=== PATIENT | male | born 1955 | race Caucasian/White ===

== ENCOUNTER 2019-08-01 00:02 | Inpatient (IN) ==
[2019-08-01] MEDS ORDERED: SODIUM CHLORIDE 0.9% 1,000 ML IV STA (00:35)
[2019-08-01] MEDS ORDERED: cefTRIAXone 1,000 MG in SODIUM CHLORIDE 0.9% 100 ML IV STA (00:35)
[2019-08-01 01:10] LABS: Bilirubin,Total 0.9 MG/DL (0.2-1.0); Calcium 8.8 MG/DL (8.5-10.1); Osmolality,Calculated 267.4 MOS/KG (273-304); Total Protein 6.4 G/DL (6.4-8.3)
[2019-08-01 01:11] LABS: Basophils % 0.2 % (0.0-0.8); Eosinophils % 0.2 % (0.00-10.9); Hematocrit 40.3 VOL% (42.0-52.0); Hemoglobin 13.7 GM/DL (14.0-18.0); Immature Granulocytes % 0.5 %; Immature Granulocytes Absolute 0.08 #; Lymphocytes # 1.5 10*3/uL (1.4-4.0); Neutrophils % 83.1 % (38.7-73.9); Platelet Count 515 T/CUMM (130-400); Red Blood Count 4.38 MC/CUMM (3.8-5.5); Red Cell Distribution Width 16.3 % (9.3-17.3); White Blood Count 16.6 T/CUMM (4-12)
[2019-08-01 01:17] LABS: INR 1.1; PT Patient Result 11.5 SECS (9.8-11.9); Partial Thromboplastin Time 23.5 SECS (23.9-33.8)
[2019-08-01 01:20] LABS: Troponin I < 0.015 NG/ML (0.00-0.045)
[2019-08-01 01:27] LABS: Bilirubin,Urine Negative (Negative); Blood, Urine Negative (Negative); Glucose,Urine (UA) Negative (Negative); Ketones,Urine 80 mg/dL (Negative); Mucus,Urine Many /LPF (Occasional); Nitrite,Urine Negative (Negative); Protein,Urine 30 MG/DL; RBC,Urine 2 /HPF (0-4); Urine Appearance CLEAR (Clear); Urine Color Amber (Yellow); Urine Specific Gravity 1.029 (1.001-1.035); WBC,Urine 1 /HPF (0-6)
[2019-08-01 02:22] LABS: ABG Base Excess -3.2 MMOL/L (-2.5-2.5); ABG HCO3 21.6 MMOL/L (20-26); ABG Oxygen Saturation 89.5 % (95-100); ABG PCO2 27.6 MM HG (35-48); ABG PH 7.455 (7.35-7.45); ABG PO2 55.9 MM HG (80-95); Allen Test Positive
[2019-08-01] MEDS ORDERED: DEXTROSE 50% 25 GM/50 ML VIAL IV PRN (02:43)
[2019-08-01] MEDS ORDERED: GLUCAGON 1 MG VIAL IM PRN (02:43)
[2019-08-01] MEDS ORDERED: NICOTINE 21 MG/24 HR PATCH TRANSDERM PRN (02:53)
[2019-08-01] MEDS ORDERED: ONDANSETRON 4 MG/2 ML VIAL IV PRN (02:53)
[2019-08-01] MEDS ORDERED: methylPREDNISolone SOD SUC 125 MG/2 ML VIAL IV STA (02:53)
[2019-08-01] MEDS ORDERED: hydrALAZINE 20 MG/1 ML VIAL IV PRN (02:53)
[2019-08-01] MEDS ORDERED: PNEUMOCOCCAL VACCINE (13 VALENT) 0.5 ML SYRINGE IM ONE (04:18)
[2019-08-01] MEDS: ACETAMINOPHEN 325 MG TABLET PO PRN ×4 (04:20→21:11)
[2019-08-01] MEDS: SODIUM CHLORIDE 0.9% 1,000 ML IV SCH ×3 (04:20→19:30)
[2019-08-01] MEDS ORDERED: RIZATRIPTAN 5 MG PO PRN (08:18)
[2019-08-01] MEDS: ALBUTEROL/IPRATROPIUM 3 ML NEB RESP TX SCH ×3 (08:49→19:45)
[2019-08-01] MEDS: sulfaSALAzine 500 MG TABLET PO SCH ×2 (09:00→21:11)
[2019-08-01] MEDS ORDERED: AZITHROMYCIN 250 MG TABLET PO ONE (09:00)
[2019-08-01] MEDS: FLUoxetine 20 MG CAPSULE PO SCH ×2 (09:01→21:21)
[2019-08-01] MEDS: busPIRone 10 MG TABLET PO SCH ×2 (09:01→21:21)
[2019-08-01] MEDS: PANTOPRAZOLE 40 MG TABLET PO SCH (09:01)
[2019-08-01] MEDS: PREGABALIN 75 MG CAPSULE PO SCH ×2 (09:01→21:11)
[2019-08-01] MEDS: LEVOTHYROXINE 88 MCG TABLET PO SCH (09:01)
[2019-08-01] MEDS: NAPROXEN 500 MG TABLET PO PRN (09:01)
[2019-08-01 10:45] LABS: Calcium 8.3 MG/DL (8.5-10.1); Osmolality,Calculated 277.1 MOS/KG (273-304)
[2019-08-01 12:42] LABS: Ferritin 97.6 ng/ml (26-388)
[2019-08-01] MEDS: ZALEPLON 5 MG CAPSULE PO SCH (21:11)
[2019-08-02] MEDS: ALBUTEROL/IPRATROPIUM 3 ML NEB RESP TX SCH ×4 (00:55→19:34)
[2019-08-02] MEDS: NAPROXEN 500 MG TABLET PO PRN ×2 (02:36→18:30)
[2019-08-02] MEDS: SODIUM CHLORIDE 0.9% 1,000 ML IV SCH ×3 (03:30→20:06)
[2019-08-02 05:00] LABS: Basophils % 0.1 % (0.0-0.8); Eosinophils % 0.1 % (0.00-10.9); Hematocrit 36.2 VOL% (42.0-52.0); Hemoglobin 12.5 GM/DL (14.0-18.0); Immature Granulocytes Absolute 0.22 #; Lymphocytes # 1.5 10*3/uL (1.4-4.0); Lymphocytes % 6.6 % (21.2-54.2); Mean Corpuscular HGB Conc 34.5 GM/DL (32-36); Mean Corpuscular Volume 90.7 FL (87-102); Mean Platelet Volume 10.3 FL (9.6-12.0); Monocytes % 4.5 % (1.7-12.7); Neutrophils % 87.7 % (38.7-73.9); Platelet Count 451 T/CUMM (130-400); Red Blood Count 3.99 MC/CUMM (3.8-5.5); Red Cell Distribution Width 16.6 % (9.3-17.3)
[2019-08-02 05:17] LABS: Calcium 8.5 MG/DL (8.5-10.1); Ferritin 115.2 ng/ml (26-388); Osmolality,Calculated 282.3 MOS/KG (273-304)
[2019-08-02 05:40] LABS: Lymphocytes 5 % (20-55); Platelet Estimate Adequate; Segmented Neutrophils 93 % (50-85); Total Cells Counted 100
[2019-08-02 05:41] LABS: Burr Cells Slight; Hypochromasia 1+; Ovalocytes Slight
[2019-08-02] MEDS: ACETAMINOPHEN 325 MG TABLET PO PRN (06:54)
[2019-08-02 07:06] LABS: Sedimentation Rate-Westergren 50 MM/HR (0-20)
[2019-08-02] MEDS ORDERED: methylPREDNISolone SOD SUC 40 MG/1 ML VIAL IV ONE (08:16)
[2019-08-02] MEDS ORDERED: DEXAMETHASONE 4 MG/1 ML VIAL IV ONE (08:18)
[2019-08-02 08:49] LABS: ABG Base Excess -3.3 MMOL/L (-2.5-2.5); ABG HCO3 21.4 MMOL/L (20-26); ABG Oxygen Saturation 87.9 % (95-100); ABG PCO2 33.4 MM HG (35-48); ABG PO2 55.9 MM HG (80-95); ABG TCO2 18.2 MMOL/L (23-27); Allen Test Positive
[2019-08-02] MEDS: sulfaSALAzine 500 MG TABLET PO SCH ×4 (09:31→20:30)
[2019-08-02] MEDS: busPIRone 10 MG TABLET PO SCH ×2 (09:32→20:27)
[2019-08-02] MEDS: LEVOTHYROXINE 88 MCG TABLET PO SCH (09:32)
[2019-08-02] MEDS: FLUoxetine 20 MG CAPSULE PO SCH ×4 (09:32→20:31)
[2019-08-02] MEDS: PANTOPRAZOLE 40 MG TABLET PO SCH (09:32)
[2019-08-02] MEDS: cefTRIAXone 1,000 MG in SYRINGE 1 EACH IV SCH (09:34)
[2019-08-02] MEDS: PREGABALIN 75 MG CAPSULE PO SCH ×2 (09:34→20:25)
[2019-08-02] MEDS: AZITHROMYCIN 250 MG TABLET PO SCH (09:34)
[2019-08-02] MEDS ORDERED: ENOXAPARIN 40 MG/0.4 ML SYRINGE SUBCUT SCH (12:30)
[2019-08-02] MEDS ORDERED: methylPREDNISolone SOD SUC 40 MG/1 ML VIAL IV SCH (15:00)
[2019-08-02] MEDS: ENOXAPARIN 80 MG/0.8 ML SYRINGE SUBCUT SCH (17:28)
[2019-08-02] MEDS: LORazepam 1 MG TABLET PO PRN ×2 (17:28→23:38)
[2019-08-02] MEDS: methylPREDNISolone SOD SUC 40 MG/1 ML VIAL IV SCH (20:25)
[2019-08-02] MEDS: ZALEPLON 5 MG CAPSULE PO SCH (20:26)
[2019-08-03] MEDS: ACETAMINOPHEN 325 MG TABLET PO PRN ×2 (00:09→07:09)
[2019-08-03] MEDS: SODIUM CHLORIDE 0.9% 1,000 ML IV SCH ×3 (01:39→15:19)
[2019-08-03] MEDS: ALBUTEROL/IPRATROPIUM 3 ML NEB RESP TX SCH ×4 (02:59→19:38)
[2019-08-03] MEDS: ENOXAPARIN 80 MG/0.8 ML SYRINGE SUBCUT SCH ×2 (03:24→15:17)
[2019-08-03 03:40] LABS: Basophils % 0.1 % (0.0-0.8); Hematocrit 36.8 VOL% (42.0-52.0); Hemoglobin 12.3 GM/DL (14.0-18.0); Immature Granulocytes % 0.8 %; Immature Granulocytes Absolute 0.12 #; Lymphocytes # 1.1 10*3/uL (1.4-4.0); Mean Corpuscular HGB Conc 33.4 GM/DL (32-36); Mean Corpuscular Volume 92.2 FL (87-102); Monocytes % 4.1 % (1.7-12.7); Platelet Count 526 T/CUMM (130-400); Red Blood Count 3.99 MC/CUMM (3.8-5.5); Red Cell Distribution Width 17.7 % (9.3-17.3); White Blood Count 15.8 T/CUMM (4-12)
[2019-08-03 05:21] LABS: Sedimentation Rate-Westergren 74 MM/HR (0-20)
[2019-08-03] MEDS: sulfaSALAzine 500 MG TABLET PO SCH ×2 (08:47→21:36)
[2019-08-03] MEDS: FLUoxetine 20 MG CAPSULE PO SCH ×2 (08:51→21:36)
[2019-08-03] MEDS: PREGABALIN 75 MG CAPSULE PO SCH ×2 (08:52→21:38)
[2019-08-03] MEDS: busPIRone 10 MG TABLET PO SCH ×2 (08:52→21:38)
[2019-08-03] MEDS: LEVOTHYROXINE 88 MCG TABLET PO SCH (08:52)
[2019-08-03] MEDS: AZITHROMYCIN 250 MG TABLET PO SCH (08:53)
[2019-08-03] MEDS: PANTOPRAZOLE 40 MG TABLET PO SCH (08:53)
[2019-08-03] MEDS: methylPREDNISolone SOD SUC 40 MG/1 ML VIAL IV SCH ×2 (08:53→21:36)
[2019-08-03] MEDS: cefTRIAXone 1,000 MG in SYRINGE 1 EACH IV SCH (08:56)
[2019-08-03] MEDS: DEXMEDETOMIDINE 200 MCG in SODIUM CHLORIDE 0.9% 48 ML IV PRN ×3 (09:10→20:17)
[2019-08-03 11:01] LABS: Calcium 8.4 MG/DL (8.5-10.1); Ferritin 96.8 ng/ml (26-388); Osmolality,Calculated 286.3 MOS/KG (273-304)
[2019-08-03] MEDS: NAPROXEN 500 MG TABLET PO PRN (16:14)
[2019-08-03] MEDS: LORazepam 1 MG TABLET PO PRN (20:18)
[2019-08-03] MEDS: RIZATRIPTAN ODT 5 MG TABLET PO PRN (20:18)
[2019-08-03] MEDS: ZALEPLON 5 MG CAPSULE PO SCH (21:38)
[2019-08-03] MEDS: guaiFENesin/DM ER 600-30 MG TABLET PO PRN (21:38)
[2019-08-04] MEDS: ALBUTEROL/IPRATROPIUM 3 ML NEB RESP TX SCH ×4 (01:40→19:35)
[2019-08-04] MEDS: RIZATRIPTAN ODT 5 MG TABLET PO PRN ×4 (02:20→16:39)
[2019-08-04] MEDS: ENOXAPARIN 80 MG/0.8 ML SYRINGE SUBCUT SCH ×2 (03:45→15:38)
[2019-08-04] MEDS: SODIUM CHLORIDE 0.9% 1,000 ML IV SCH ×2 (03:48→15:36)
[2019-08-04] MEDS: LORazepam 1 MG TABLET PO PRN (04:34)
[2019-08-04 05:07] LABS: Basophils % 0.2 % (0.0-0.8); Hematocrit 35.8 VOL% (42.0-52.0); Hemoglobin 12.4 GM/DL (14.0-18.0); Immature Granulocytes % 0.5 %; Immature Granulocytes Absolute 0.06 #; Lymphocytes # 0.6 10*3/uL (1.4-4.0); Lymphocytes % 4.8 % (21.2-54.2); Mean Corpuscular HGB Conc 34.6 GM/DL (32-36); Mean Corpuscular Volume 89.5 FL (87-102); Mean Platelet Volume 10.4 FL (9.6-12.0); Monocytes % 3.2 % (1.7-12.7); NRBC # 0.02 10*3/uL; Neutrophils % 91.3 % (38.7-73.9); Platelet Count 599 T/CUMM (130-400); Red Cell Distribution Width 16.9 % (9.3-17.3); White Blood Count 13.2 T/CUMM (4-12)
[2019-08-04] MEDS: DEXMEDETOMIDINE 200 MCG in SODIUM CHLORIDE 0.9% 48 ML IV PRN ×2 (05:08→15:37)
[2019-08-04 05:31] LABS: Albumin 1.7 G/DL (3.4-5.0); Bilirubin,Total 0.4 MG/DL (0.2-1.0); Calcium 8.9 MG/DL (8.5-10.1); Osmolality,Calculated 287.1 MOS/KG (273-304); Total Protein 5.5 G/DL (6.4-8.3)
[2019-08-04 05:47] LABS: Lymphocytes 5 % (20-55); Segmented Neutrophils 91 % (50-85); Total Cells Counted 100
[2019-08-04 05:49] LABS: Anisocytosis 1+; Burr Cells 1+; Hypochromasia Slight; Macrocytosis 1+; Platelet Estimate Increased; Target Cells Few
[2019-08-04] MEDS: sulfaSALAzine 500 MG TABLET PO SCH ×2 (08:13→20:24)
[2019-08-04] MEDS: FLUoxetine 20 MG CAPSULE PO SCH ×2 (08:13→20:21)
[2019-08-04] MEDS: PANTOPRAZOLE 40 MG TABLET PO SCH (08:32)
[2019-08-04] MEDS: LEVOTHYROXINE 88 MCG TABLET PO SCH (08:32)
[2019-08-04] MEDS: busPIRone 10 MG TABLET PO SCH ×2 (08:32→20:20)
[2019-08-04] MEDS: methylPREDNISolone SOD SUC 40 MG/1 ML VIAL IV SCH (08:33)
[2019-08-04] MEDS: cefTRIAXone 1,000 MG in SYRINGE 1 EACH IV SCH (08:33)
[2019-08-04] MEDS: AZITHROMYCIN 250 MG TABLET PO SCH (08:33)
[2019-08-04] MEDS: PREGABALIN 75 MG CAPSULE PO SCH ×2 (08:33→20:20)
[2019-08-04] MEDS ORDERED: ETOMIDATE 20 MG/10 ML VIAL IV ONE (09:16)
[2019-08-04] MEDS ORDERED: fentaNYL 100 MCG/2 ML VIAL IV STA (09:18)
[2019-08-04] MEDS ORDERED: propofoL 200 MG/20 ML VIAL IV ONE (09:18)
[2019-08-04] MEDS ORDERED: SUCCINYLCHOLINE 200 MG/10 ML VIAL ONE (09:21)
[2019-08-04] MEDS: methylPREDNISolone SOD SUC 125 MG/2 ML VIAL IV SCH ×3 (09:31→20:35)
[2019-08-04] MEDS: ACETAMINOPHEN 325 MG TABLET PO PRN (17:53)
[2019-08-04] MEDS: ZALEPLON 5 MG CAPSULE PO SCH (20:24)
[2019-08-05] MEDS: DEXMEDETOMIDINE 200 MCG in SODIUM CHLORIDE 0.9% 48 ML IV PRN ×3 (01:12→17:56)
[2019-08-05] MEDS: RIZATRIPTAN ODT 5 MG TABLET PO PRN ×6 (02:18→18:12)
[2019-08-05] MEDS: SODIUM CHLORIDE 0.9% 1,000 ML IV SCH (02:18)
[2019-08-05] MEDS: methylPREDNISolone SOD SUC 125 MG/2 ML VIAL IV SCH ×4 (03:23→21:10)
[2019-08-05] MEDS: ENOXAPARIN 80 MG/0.8 ML SYRINGE SUBCUT SCH ×2 (03:26→15:05)
[2019-08-05 05:14] LABS: Basophils % 0.1 % (0.0-0.8); Hematocrit 38.3 VOL% (42.0-52.0); Hemoglobin 12.8 GM/DL (14.0-18.0); Immature Granulocytes % 0.8 %; Immature Granulocytes Absolute 0.08 #; Lymphocytes # 0.9 10*3/uL (1.4-4.0); Lymphocytes % 8.2 % (21.2-54.2); Mean Corpuscular HGB Conc 33.4 GM/DL (32-36); Mean Corpuscular Volume 91.6 FL (87-102); Mean Platelet Volume 10.4 FL (9.6-12.0); Monocytes % 2.6 % (1.7-12.7); NRBC # 0.02 10*3/uL; Neutrophils % 88.3 % (38.7-73.9); Platelet Count 635 T/CUMM (130-400); Red Blood Count 4.18 MC/CUMM (3.8-5.5); Red Cell Distribution Width 16.8 % (9.3-17.3); White Blood Count 10.6 T/CUMM (4-12)
[2019-08-05 05:32] LABS: Albumin 1.6 G/DL (3.4-5.0); Bilirubin,Total 0.5 MG/DL (0.2-1.0); Calcium 8.4 MG/DL (8.5-10.1); Osmolality,Calculated 284.4 MOS/KG (273-304); Total Protein 5.2 G/DL (6.4-8.3)
[2019-08-05] MEDS: ALBUTEROL/IPRATROPIUM 3 ML NEB RESP TX SCH ×4 (07:28→19:50)
[2019-08-05] MEDS: FLUoxetine 20 MG CAPSULE PO SCH ×2 (08:34→21:06)
[2019-08-05] MEDS: AZITHROMYCIN 250 MG TABLET PO SCH (08:34)
[2019-08-05] MEDS: busPIRone 10 MG TABLET PO SCH ×2 (08:34→21:08)
[2019-08-05] MEDS: PANTOPRAZOLE 40 MG TABLET PO SCH (08:34)
[2019-08-05] MEDS: PREGABALIN 75 MG CAPSULE PO SCH ×2 (08:34→21:08)
[2019-08-05] MEDS: ERGOCALCIFEROL 50,000 UNIT CAPSULE PO SCH (08:35)
[2019-08-05] MEDS: LORazepam 1 MG TABLET PO PRN ×3 (08:35→21:09)
[2019-08-05] MEDS: LEVOTHYROXINE 88 MCG TABLET PO SCH (08:35)
[2019-08-05] MEDS: guaiFENesin/DM ER 600-30 MG TABLET PO PRN (08:35)
[2019-08-05] MEDS: cefTRIAXone 1,000 MG in SYRINGE 1 EACH IV SCH (08:35)
[2019-08-05] MEDS: sulfaSALAzine 500 MG TABLET PO SCH ×2 (08:36→21:15)
[2019-08-05] MEDS ORDERED: FUROSEMIDE 40 MG/4 ML VIAL IV ONE (08:44)
[2019-08-05] MEDS: NAPROXEN 500 MG TABLET PO PRN ×2 (10:09→22:38)
[2019-08-05] MEDS: ZALEPLON 5 MG CAPSULE PO SCH (21:07)
[2019-08-06] MEDS: DEXMEDETOMIDINE 200 MCG in SODIUM CHLORIDE 0.9% 48 ML IV PRN (00:55)
[2019-08-06] MEDS: ALBUTEROL/IPRATROPIUM 3 ML NEB RESP TX SCH ×4 (01:58→18:56)
[2019-08-06] MEDS: ENOXAPARIN 80 MG/0.8 ML SYRINGE SUBCUT SCH (04:01)
[2019-08-06] MEDS: methylPREDNISolone SOD SUC 125 MG/2 ML VIAL IV SCH ×5 (04:02→20:31)
[2019-08-06] MEDS: LORazepam 1 MG TABLET PO PRN ×3 (04:06→20:50)
[2019-08-06] MEDS: NAPROXEN 500 MG TABLET PO PRN (04:10)
[2019-08-06 05:24] LABS: Basophils % 0.1 % (0.0-0.8); Hematocrit 40.8 VOL% (42.0-52.0); Hemoglobin 13.9 GM/DL (14.0-18.0); Immature Granulocytes % 0.8 %; Immature Granulocytes Absolute 0.11 #; Lymphocytes # 1.1 10*3/uL (1.4-4.0); Mean Corpuscular HGB Conc 34.1 GM/DL (32-36); Mean Corpuscular Volume 90.1 FL (87-102); Mean Platelet Volume 10.8 FL (9.6-12.0); Monocytes % 2.7 % (1.7-12.7); Neutrophils % 88.4 % (38.7-73.9); Platelet Count 691 T/CUMM (130-400); Red Blood Count 4.53 MC/CUMM (3.8-5.5); Red Cell Distribution Width 16.5 % (9.3-17.3); White Blood Count 14.3 T/CUMM (4-12)
[2019-08-06 05:49] LABS: Bilirubin,Total 0.4 MG/DL (0.2-1.0); Calcium 9.2 MG/DL (8.5-10.1); Osmolality,Calculated 284.4 MOS/KG (273-304); Total Protein 5.9 G/DL (6.4-8.3)
[2019-08-06] MEDS: NICOTINE 21 MG/24 HR PATCH TRANSDERM SCH (08:10)
[2019-08-06] MEDS: FUROSEMIDE 40 MG/4 ML VIAL IV SCH ×2 (08:11→15:43)
[2019-08-06] MEDS: cefTRIAXone 1,000 MG in SYRINGE 1 EACH IV SCH (08:11)
[2019-08-06] MEDS: busPIRone 10 MG TABLET PO SCH ×2 (08:11→20:15)
[2019-08-06] MEDS: LEVOTHYROXINE 88 MCG TABLET PO SCH (08:12)
[2019-08-06] MEDS: PANTOPRAZOLE 40 MG TABLET PO SCH (08:12)
[2019-08-06] MEDS: sulfaSALAzine 500 MG TABLET PO SCH ×2 (08:12→20:15)
[2019-08-06] MEDS: RIZATRIPTAN ODT 5 MG TABLET PO PRN ×2 (08:12→15:43)
[2019-08-06] MEDS: PREGABALIN 75 MG CAPSULE PO SCH ×2 (08:12→20:15)
[2019-08-06] MEDS: FLUoxetine 20 MG CAPSULE PO SCH ×2 (08:13→20:15)
[2019-08-06] MEDS: fentaNYL 25 MCG/HR PATCH TRANSDERM SCH (10:34)
[2019-08-06] MEDS: FLUTICASONE 50 MCG NASAL SPRAY 16 GM BOTTLE BOTH NARES SCH ×2 (10:34→20:17)
[2019-08-06 11:02] LABS: Bilirubin,Urine Negative (Negative); Blood, Urine Negative (Negative); Glucose,Urine (UA) Negative (Negative); Ketones,Urine Negative (Negative); Mucus,Urine Occasional /LPF (Occasional); Nitrite,Urine Negative (Negative); Protein,Urine Negative; RBC,Urine 1 /HPF (0-4); Urine Appearance CLEAR (Clear); Urine Color Colorless (Yellow); Urine Specific Gravity 1.006 (1.001-1.035); Urine Urobilinogen < 2.0 EU/DL (0.2-1.0)
[2019-08-06] MEDS: diphenhydrAMINE CAP 25 MG CAPSULE PO PRN (20:15)
[2019-08-06] MEDS: ZALEPLON 5 MG CAPSULE PO SCH (20:15)
[2019-08-07] MEDS: ALBUTEROL/IPRATROPIUM 3 ML NEB RESP TX SCH ×4 (00:39→19:45)
[2019-08-07] MEDS: RIZATRIPTAN ODT 5 MG TABLET PO PRN ×4 (00:47→09:28)
[2019-08-07] MEDS: methylPREDNISolone SOD SUC 125 MG/2 ML VIAL IV SCH ×3 (03:07→20:52)
[2019-08-07] MEDS: LORazepam 1 MG TABLET PO PRN ×3 (03:08→15:21)
[2019-08-07 05:05] LABS: Basophils % 0.1 % (0.0-0.8); Hematocrit 37.6 VOL% (42.0-52.0); Hemoglobin 12.6 GM/DL (14.0-18.0); Immature Granulocytes % 1.1 %; Immature Granulocytes Absolute 0.13 #; Lymphocytes # 0.9 10*3/uL (1.4-4.0); Lymphocytes % 7.5 % (21.2-54.2); Mean Corpuscular HGB Conc 33.5 GM/DL (32-36); Mean Corpuscular Volume 90.6 FL (87-102); Mean Platelet Volume 10.3 FL (9.6-12.0); Monocytes % 4.2 % (1.7-12.7); Neutrophils % 87.1 % (38.7-73.9); Platelet Count 690 T/CUMM (130-400); Red Blood Count 4.15 MC/CUMM (3.8-5.5); Red Cell Distribution Width 15.9 % (9.3-17.3); White Blood Count 11.6 T/CUMM (4-12)
[2019-08-07 05:14] LABS: Calcium 8.4 MG/DL (8.5-10.1); Osmolality,Calculated 283.5 MOS/KG (273-304)
[2019-08-07] MEDS: PREGABALIN 75 MG CAPSULE PO SCH ×2 (09:14→20:34)
[2019-08-07] MEDS: busPIRone 10 MG TABLET PO SCH ×2 (09:14→20:35)
[2019-08-07] MEDS: sulfaSALAzine 500 MG TABLET PO SCH ×2 (09:15→20:35)
[2019-08-07] MEDS: PANTOPRAZOLE 40 MG TABLET PO SCH (09:15)
[2019-08-07] MEDS: FLUoxetine 20 MG CAPSULE PO SCH ×2 (09:15→20:38)
[2019-08-07] MEDS: FUROSEMIDE 40 MG/4 ML VIAL IV SCH (09:16)
[2019-08-07] MEDS: ENOXAPARIN 40 MG/0.4 ML SYRINGE SUBCUT SCH (09:19)
[2019-08-07] MEDS: NICOTINE 21 MG/24 HR PATCH TRANSDERM SCH (09:19)
[2019-08-07] MEDS: cefTRIAXone 1,000 MG in SYRINGE 1 EACH IV SCH (09:24)
[2019-08-07] MEDS: FLUTICASONE 50 MCG NASAL SPRAY 16 GM BOTTLE BOTH NARES SCH ×2 (09:26→20:34)
[2019-08-07] MEDS: LEVOTHYROXINE 88 MCG TABLET PO SCH (09:34)
[2019-08-07] MEDS: ACETAMINOPHEN 325 MG TABLET PO PRN (14:06)
[2019-08-07] MEDS: ZALEPLON 5 MG CAPSULE PO SCH (20:35)
[2019-08-07] MEDS: NAPROXEN 500 MG TABLET PO PRN (23:23)
[2019-08-08] MEDS: ALBUTEROL/IPRATROPIUM 3 ML NEB RESP TX SCH ×4 (02:35→20:02)
[2019-08-08] MEDS: methylPREDNISolone SOD SUC 40 MG/1 ML VIAL IV SCH ×2 (03:02→12:01)
[2019-08-08] MEDS: cefTRIAXone 2,000 MG in SYRINGE 1 EACH IV SCH (09:17)
[2019-08-08] MEDS: FUROSEMIDE 40 MG/4 ML VIAL IV SCH (09:18)
[2019-08-08] MEDS: ENOXAPARIN 40 MG/0.4 ML SYRINGE SUBCUT SCH (09:28)
[2019-08-08] MEDS: FLUTICASONE 50 MCG NASAL SPRAY 16 GM BOTTLE BOTH NARES SCH ×2 (09:30→20:31)
[2019-08-08] MEDS: PREGABALIN 75 MG CAPSULE PO SCH ×2 (09:31→20:16)
[2019-08-08] MEDS: LEVOTHYROXINE 88 MCG TABLET PO SCH (09:31)
[2019-08-08] MEDS: FLUoxetine 20 MG CAPSULE PO SCH ×2 (09:32→20:15)
[2019-08-08] MEDS: PANTOPRAZOLE 40 MG TABLET PO SCH (09:33)
[2019-08-08] MEDS: busPIRone 10 MG TABLET PO SCH ×2 (09:34→20:15)
[2019-08-08] MEDS: sulfaSALAzine 500 MG TABLET PO SCH ×2 (09:34→20:15)
[2019-08-08] MEDS: NICOTINE 21 MG/24 HR PATCH TRANSDERM SCH (09:35)
[2019-08-08] MEDS ORDERED: MELOXICAM 7.5 MG TABLET PO SCH (12:30)
[2019-08-08] MEDS: MELOXICAM 7.5 MG TABLET PO SCH (14:02)
[2019-08-08] MEDS: ACETAMINOPHEN 325 MG TABLET PO PRN (16:14)
[2019-08-08] MEDS: ZALEPLON 5 MG CAPSULE PO SCH (20:15)
[2019-08-08] MEDS: RIZATRIPTAN ODT 5 MG TABLET PO PRN (20:33)
[2019-08-08] MEDS: LORazepam 1 MG TABLET PO PRN (21:59)
[2019-08-09] MEDS: methylPREDNISolone SOD SUC 40 MG/1 ML VIAL IV SCH ×2 (00:19→11:14)
[2019-08-09] MEDS: ALBUTEROL/IPRATROPIUM 3 ML NEB RESP TX SCH ×3 (01:20→13:45)
[2019-08-09] MEDS: RIZATRIPTAN ODT 5 MG TABLET PO PRN ×3 (07:38→20:58)
[2019-08-09] MEDS: cefTRIAXone 2,000 MG in SYRINGE 1 EACH IV SCH (09:24)
[2019-08-09] MEDS: ACETAMINOPHEN 325 MG TABLET PO PRN ×2 (09:24→20:33)
[2019-08-09] MEDS: PANTOPRAZOLE 40 MG TABLET PO SCH (09:25)
[2019-08-09] MEDS: NICOTINE 21 MG/24 HR PATCH TRANSDERM SCH (09:25)
[2019-08-09] MEDS: PREGABALIN 75 MG CAPSULE PO SCH ×2 (09:26→20:32)
[2019-08-09] MEDS: sulfaSALAzine 500 MG TABLET PO SCH ×2 (09:26→20:36)
[2019-08-09] MEDS: MELOXICAM 7.5 MG TABLET PO SCH (09:26)
[2019-08-09] MEDS: LEVOTHYROXINE 88 MCG TABLET PO SCH (09:26)
[2019-08-09] MEDS: busPIRone 10 MG TABLET PO SCH ×2 (09:26→20:31)
[2019-08-09] MEDS: FLUoxetine 20 MG CAPSULE PO SCH ×2 (09:26→20:31)
[2019-08-09] MEDS: FUROSEMIDE 40 MG/4 ML VIAL IV SCH (09:27)
[2019-08-09] MEDS: ENOXAPARIN 40 MG/0.4 ML SYRINGE SUBCUT SCH (09:27)
[2019-08-09] MEDS: FLUTICASONE 50 MCG NASAL SPRAY 16 GM BOTTLE BOTH NARES SCH ×2 (09:27→20:38)
[2019-08-09] MEDS: fentaNYL 25 MCG/HR PATCH TRANSDERM SCH (09:31)
[2019-08-09] MEDS ORDERED: ALBUTEROL/IPRATROPIUM 3 ML NEB RESP TX PRN (16:43)
[2019-08-09] MEDS: diphenhydrAMINE CAP 25 MG CAPSULE PO PRN (21:49)
[2019-08-10] MEDS: methylPREDNISolone SOD SUC 40 MG/1 ML VIAL IV SCH ×2 (00:55→11:51)
[2019-08-10] MEDS: ACETAMINOPHEN 325 MG TABLET PO PRN ×3 (01:31→17:47)
[2019-08-10] MEDS: RIZATRIPTAN ODT 5 MG TABLET PO PRN ×6 (01:32→20:33)
[2019-08-10 06:11] LABS: Basophils % 0.1 % (0.0-0.8); Eosinophils % 0.1 % (0.00-10.9); Hemoglobin 13.7 GM/DL (14.0-18.0); Immature Granulocytes % 0.8 %; Immature Granulocytes Absolute 0.12 #; Lymphocytes # 0.7 10*3/uL (1.4-4.0); Lymphocytes % 4.9 % (21.2-54.2); Mean Corpuscular HGB Conc 33.4 GM/DL (32-36); Mean Corpuscular Volume 92.1 FL (87-102); Mean Platelet Volume 10.7 FL (9.6-12.0); Monocytes % 3.5 % (1.7-12.7); Neutrophils % 90.6 % (38.7-73.9); Platelet Count 713 T/CUMM (130-400); Red Blood Count 4.45 MC/CUMM (3.8-5.5); Red Cell Distribution Width 16.4 % (9.3-17.3); White Blood Count 14.6 T/CUMM (4-12)
[2019-08-10 06:24] LABS: Osmolality,Calculated 285.5 MOS/KG (273-304)
[2019-08-10 07:49] LABS: Anisocytosis 1+; Lymphocytes 5 % (20-55); Macrocytosis 1+; Platelet Estimate Normal; Segmented Neutrophils 94 % (50-85); Total Cells Counted 100
[2019-08-10] MEDS: cefTRIAXone 2,000 MG in SYRINGE 1 EACH IV SCH (08:07)
[2019-08-10] MEDS: FLUoxetine 20 MG CAPSULE PO SCH ×2 (08:08→20:33)
[2019-08-10] MEDS: PANTOPRAZOLE 40 MG TABLET PO SCH (08:08)
[2019-08-10] MEDS: LEVOTHYROXINE 88 MCG TABLET PO SCH (08:08)
[2019-08-10] MEDS: sulfaSALAzine 500 MG TABLET PO SCH ×2 (08:08→20:33)
[2019-08-10] MEDS: MELOXICAM 7.5 MG TABLET PO SCH (08:08)
[2019-08-10] MEDS: PREGABALIN 75 MG CAPSULE PO SCH ×2 (08:08→20:33)
[2019-08-10] MEDS: busPIRone 10 MG TABLET PO SCH ×2 (08:08→20:33)
[2019-08-10] MEDS: NICOTINE 21 MG/24 HR PATCH TRANSDERM SCH (08:09)
[2019-08-10] MEDS: ENOXAPARIN 40 MG/0.4 ML SYRINGE SUBCUT SCH (08:09)
[2019-08-10] MEDS: FLUTICASONE 50 MCG NASAL SPRAY 16 GM BOTTLE BOTH NARES SCH ×2 (08:17→20:36)
[2019-08-10] MEDS: diphenhydrAMINE CAP 25 MG CAPSULE PO PRN (20:33)
[2019-08-11] MEDS: methylPREDNISolone SOD SUC 40 MG/1 ML VIAL IV SCH ×2 (01:32→12:00)
[2019-08-11] MEDS: ACETAMINOPHEN 325 MG TABLET PO PRN ×3 (01:33→17:54)
[2019-08-11] MEDS: diphenhydrAMINE CAP 25 MG CAPSULE PO PRN ×2 (01:34→21:21)
[2019-08-11 03:57] LABS: Basophils % 0.1 % (0.0-0.8); Eosinophils % 0.2 % (0.00-10.9); Hemoglobin 13.6 GM/DL (14.0-18.0); Immature Granulocytes % 0.9 %; Immature Granulocytes Absolute 0.13 #; Lymphocytes # 1.4 10*3/uL (1.4-4.0); Lymphocytes % 10.1 % (21.2-54.2); Mean Corpuscular HGB Conc 33.2 GM/DL (32-36); Mean Corpuscular Volume 92.1 FL (87-102); Monocytes % 6.4 % (1.7-12.7); Neutrophils % 82.3 % (38.7-73.9); Platelet Count 703 T/CUMM (130-400); Red Blood Count 4.45 MC/CUMM (3.8-5.5); Red Cell Distribution Width 16.8 % (9.3-17.3); White Blood Count 14.3 T/CUMM (4-12)
[2019-08-11 04:15] LABS: Calcium 7.9 MG/DL (8.5-10.1); Osmolality,Calculated 291.1 MOS/KG (273-304)
[2019-08-11] MEDS: FLUTICASONE 50 MCG NASAL SPRAY 16 GM BOTTLE BOTH NARES SCH ×2 (08:33→21:24)
[2019-08-11] MEDS: cefTRIAXone 2,000 MG in SYRINGE 1 EACH IV SCH (08:33)
[2019-08-11] MEDS: NICOTINE 21 MG/24 HR PATCH TRANSDERM SCH (08:33)
[2019-08-11] MEDS: PREGABALIN 75 MG CAPSULE PO SCH ×2 (08:34→21:21)
[2019-08-11] MEDS: MELOXICAM 7.5 MG TABLET PO SCH (08:34)
[2019-08-11] MEDS: busPIRone 10 MG TABLET PO SCH ×2 (08:35→21:21)
[2019-08-11] MEDS: FLUoxetine 20 MG CAPSULE PO SCH ×2 (08:35→21:21)
[2019-08-11] MEDS: ENOXAPARIN 40 MG/0.4 ML SYRINGE SUBCUT SCH (08:35)
[2019-08-11] MEDS: PANTOPRAZOLE 40 MG TABLET PO SCH (08:35)
[2019-08-11] MEDS: LEVOTHYROXINE 88 MCG TABLET PO SCH (08:37)
[2019-08-11] MEDS: sulfaSALAzine 500 MG TABLET PO SCH ×2 (08:41→21:21)
[2019-08-11] MEDS: RIZATRIPTAN ODT 5 MG TABLET PO PRN (13:24)
[2019-08-11] MEDS: CEFDINIR 300 MG CAPSULE PO SCH (21:21)
[2019-08-12] MEDS: methylPREDNISolone SOD SUC 40 MG/1 ML VIAL IV SCH (01:23)
[2019-08-12] MEDS: ACETAMINOPHEN 325 MG TABLET PO PRN ×2 (06:11→10:46)
[2019-08-12] MEDS: RIZATRIPTAN ODT 5 MG TABLET PO PRN ×2 (06:12→08:22)
[2019-08-12] MEDS: MELOXICAM 7.5 MG TABLET PO SCH (08:18)
[2019-08-12] MEDS: sulfaSALAzine 500 MG TABLET PO SCH (08:18)
[2019-08-12] MEDS: PREGABALIN 75 MG CAPSULE PO SCH (08:19)
[2019-08-12] MEDS: LEVOTHYROXINE 88 MCG TABLET PO SCH (08:19)
[2019-08-12] MEDS: busPIRone 10 MG TABLET PO SCH (08:19)
[2019-08-12] MEDS: FLUoxetine 20 MG CAPSULE PO SCH (08:19)
[2019-08-12] MEDS: ERGOCALCIFEROL 50,000 UNIT CAPSULE PO SCH (08:19)
[2019-08-12] MEDS: PANTOPRAZOLE 40 MG TABLET PO SCH (08:19)
[2019-08-12] MEDS: CEFDINIR 300 MG CAPSULE PO SCH (08:20)
[2019-08-12] MEDS: ENOXAPARIN 40 MG/0.4 ML SYRINGE SUBCUT SCH (08:20)
[2019-08-12] MEDS: NICOTINE 21 MG/24 HR PATCH TRANSDERM SCH (08:21)
[2019-08-12] MEDS: FLUTICASONE 50 MCG NASAL SPRAY 16 GM BOTTLE BOTH NARES SCH (08:23)
[2019-08-12] MEDS ORDERED: predniSONE 20 MG TABLET PO SCH (11:00)
[2019-08-12 12:23] VITALS: BP 114/69
== END 2019-08-12 15:10 | disposition home or self-care (01) | DRG 193 ==
LOC: EDUNIT# → EDBD → N.ED 00:02 → SUATTDRO 02:53 → N.EDINP 02:53 → N.2E 03:28 → N.ICU 08-02 10:28 → N.4E 08-07 11:11
PROVIDERS: ADMIT Family Medicine; ATTEND Internal Medicine

== ENCOUNTER 2020-10-18 22:39 | Inpatient (IN) ==
[2020-10-18] MEDS ORDERED: ONDANSETRON 4 MG/2 ML VIAL IV STA (23:22)
[2020-10-18] MEDS ORDERED: ASPIRIN 325 MG TABLET PO STA (23:22)
[2020-10-18] MEDS ORDERED: NITROGLYCERIN 2% OINT 1 INCH/GM PACK TOP STA (23:22)
[2020-10-18] MEDS ORDERED: MORPHINE 2 MG/1 ML SYRINGE IV STA ×2 (23:22→23:58)
[2020-10-18] MEDS ORDERED: METHOCARBAMOL 1,000 MG/10 ML VIAL IV STA (23:58)
[2020-10-19 01:16] LABS: Basophils % 0.2 % (0.0-0.8); Eosinophils % 0.1 % (0.00-10.9); Hematocrit 46.9 VOL% (42.0-52.0); Hemoglobin 16.2 GM/DL (14.0-18.0); Immature Granulocytes % 0.4 %; Immature Granulocytes Absolute 0.07 #; Lymphocytes # 1.1 10*3/uL (1.4-4.0); Lymphocytes % 5.6 % (21.2-54.2); Mean Corpuscular HGB Conc 34.5 GM/DL (32-36); Mean Corpuscular Volume 94.6 FL (87-102); Mean Platelet Volume 10.4 FL (9.6-12.0); Monocytes % 9.8 % (1.7-12.7); NRBC # 0.02 10*3/uL; Neutrophils % 83.9 % (38.7-73.9); Platelet Count 412 T/CUMM (130-400); Red Blood Count 4.96 MC/CUMM (3.8-5.5); Red Cell Distribution Width 16.5 % (9.3-17.3); White Blood Count 18.9 T/CUMM (4-12)
[2020-10-19 01:29] LABS: Albumin 3.3 G/DL (3.4-5.0); Calcium 9.4 MG/DL (8.5-10.1); Osmolality,Calculated 282.4 MOS/KG (273-304); Potassium 4.2 MMOL/L (3.5-5.1); Total Protein 6.9 G/DL (6.4-8.2)
[2020-10-19 01:43] LABS: INR 0.9; PT Patient Result 10.5 SECS (10.5-12.0)
[2020-10-19] MEDS ORDERED: NICOTINE 21 MG/24 HR PATCH TRANSDERM PRN (04:44)
[2020-10-19] MEDS ORDERED: ALBUTEROL/IPRATROPIUM 3 ML NEB RESP TX PRN (04:44)
[2020-10-19] MEDS ORDERED: ONDANSETRON 4 MG/2 ML VIAL IV PRN (04:44)
[2020-10-19] MEDS: chlordiazePOXIDE 25 MG CAPSULE PO SCH ×4 (05:30→23:39)
[2020-10-19 05:58] LABS: Bilirubin,Urine Negative (Negative); Blood, Urine Negative (Negative); Glucose,Urine (UA) Negative (Negative); Ketones,Urine Negative (Negative); Mucus,Urine Occasional /LPF (Occasional); Nitrite,Urine Negative (Negative); Protein,Urine Negative; RBC,Urine 14 /HPF (0-4); Urine Appearance CLEAR (Clear); Urine Color Yellow (Yellow)
[2020-10-19 06:07] LABS: Urine Specific Gravity 4.124 (1.001-1.035)
[2020-10-19 06:10] LABS: Barbiturates Screen,Urine Negative (Negative); Benzodiazepines Screen,Urine Negative (Negative); Cannabinoid Screen,Urine Negative (Negative); Opiate Screen,Urine Positive (Negative); Phencyclidine Screen,Urine Negative (Negative)
[2020-10-19] MEDS: SODIUM CHLORIDE 0.9% 1,000 ML IV SCH ×3 (06:57→21:34)
[2020-10-19] MEDS: FOLIC ACID 1 MG TABLET PO SCH (08:25)
[2020-10-19] MEDS: THIAMINE 100 MG TABLET PO SCH (08:25)
[2020-10-19] MEDS: ENOXAPARIN 40 MG/0.4 ML SYRINGE SUBCUT SCH (08:26)
[2020-10-19] MEDS: LORazepam 2 MG/1 ML VIAL IV PRN (08:27)
[2020-10-19] MEDS ORDERED: PANTOPRAZOLE 40 MG TABLET PO SCH (09:00)
[2020-10-19] MEDS ORDERED: PANTOPRAZOLE 40 MG VIAL IV ONE (21:19)
[2020-10-20 05:19] LABS: Basophils % 0.4 % (0.0-0.8); Eosinophils % 0.4 % (0.00-10.9); Hemoglobin 14.3 GM/DL (14.0-18.0); Immature Granulocytes % 0.4 %; Immature Granulocytes Absolute 0.04 #; Lymphocytes # 1.6 10*3/uL (1.4-4.0); Lymphocytes % 15.4 % (21.2-54.2); Mean Corpuscular Volume 94.6 FL (87-102); Monocytes % 13.6 % (1.7-12.7); Neutrophils % 69.8 % (38.7-73.9); Platelet Count 469 T/CUMM (130-400); Red Blood Count 4.44 MC/CUMM (3.8-5.5); Red Cell Distribution Width 16.9 % (9.3-17.3); White Blood Count 10.5 T/CUMM (4-12)
[2020-10-20] MEDS: chlordiazePOXIDE 25 MG CAPSULE PO SCH ×2 (05:37→12:44)
[2020-10-20] MEDS: PANTOPRAZOLE 40 MG VIAL IV SCH (05:37)
[2020-10-20] MEDS: SODIUM CHLORIDE 0.9% 1,000 ML IV SCH ×3 (05:37→20:34)
[2020-10-20 05:55] LABS: Albumin 2.7 G/DL (3.4-5.0); Bilirubin,Total 0.9 MG/DL (0.20-1.00); Calcium 8.6 MG/DL (8.5-10.1); Osmolality,Calculated 278.5 MOS/KG (273-304); Total Protein 6.3 G/DL (6.4-8.2)
[2020-10-20] MEDS: MORPHINE 2 MG/1 ML SYRINGE IV PRN (09:30)
[2020-10-20] MEDS: THIAMINE 100 MG TABLET PO SCH (09:30)
[2020-10-20] MEDS: FOLIC ACID 1 MG TABLET PO SCH (09:30)
[2020-10-20] MEDS: ENOXAPARIN 40 MG/0.4 ML SYRINGE SUBCUT SCH (09:31)
[2020-10-20] MEDS: POTASSIUM CHLORIDE RIDER 10 MEQ/100 ML PREMIX IV SCH ×4 (09:31→12:45)
[2020-10-20] MEDS ORDERED: POTASSIUM CHLORIDE RIDER 10 MEQ/100 ML PREMIX IV PRN (15:00)
[2020-10-20] MEDS: PHENOL 1.4% THROAT SPRAY 177 ML BOTTLE PO PRN (17:54)
[2020-10-20] MEDS: LORazepam 2 MG/1 ML VIAL IV PRN ×2 (18:14→20:34)
[2020-10-21] MEDS: MORPHINE 2 MG/1 ML SYRINGE IV PRN ×4 (01:07→22:37)
[2020-10-21] MEDS: LORazepam 2 MG/1 ML VIAL IV PRN ×4 (03:56→20:56)
[2020-10-21 05:18] LABS: Basophils % 0.4 % (0.0-0.8); Eosinophils # 0.3 10*3/uL (0.0-0.87); Eosinophils % 2.9 % (0.00-10.9); Hematocrit 39.1 VOL% (42.0-52.0); Hemoglobin 12.8 GM/DL (14.0-18.0); Immature Granulocytes % 0.4 %; Immature Granulocytes Absolute 0.03 #; Lymphocytes # 1.9 10*3/uL (1.4-4.0); Lymphocytes % 22.1 % (21.2-54.2); Mean Corpuscular HGB Conc 32.7 GM/DL (32-36); Mean Corpuscular Volume 97.3 FL (87-102); Mean Platelet Volume 10.8 FL (9.6-12.0); Monocytes % 17.7 % (1.7-12.7); Neutrophils % 56.5 % (38.7-73.9); Platelet Count 352 T/CUMM (130-400); Red Blood Count 4.02 MC/CUMM (3.8-5.5); Red Cell Distribution Width 17.2 % (9.3-17.3); White Blood Count 8.5 T/CUMM (4-12)
[2020-10-21 05:38] LABS: Calcium 7.7 MG/DL (8.5-10.1); Osmolality,Calculated 276.4 MOS/KG (273-304); Potassium 3.8 MMOL/L (3.5-5.1)
[2020-10-21 05:46] LABS: Eosinophils 1 % (0-10); Lymphocytes 24 % (20-55); Platelet Estimate Adequate; Segmented Neutrophils 58 % (50-85); Total Cells Counted 100
[2020-10-21] MEDS: SODIUM CHLORIDE 0.9% 1,000 ML IV SCH (06:53)
[2020-10-21] MEDS: ENOXAPARIN 40 MG/0.4 ML SYRINGE SUBCUT SCH (08:09)
[2020-10-21] MEDS: DEXT 5% NACL 0.45% KCL 40 MEQ 40 MEQ/1,000 ML BAG IV SCH ×2 (08:09→16:23)
[2020-10-21] MEDS: PANTOPRAZOLE 40 MG VIAL IV SCH (08:11)
[2020-10-21] MEDS: FOLIC ACID 1 MG TABLET PO SCH (08:13)
[2020-10-21] MEDS: THIAMINE 100 MG TABLET PO SCH (08:13)
[2020-10-22] MEDS ORDERED: ZALEPLON 5 MG CAPSULE PO ONE (00:06)
[2020-10-22] MEDS: LORazepam 2 MG/1 ML VIAL IV PRN ×3 (00:30→10:06)
[2020-10-22] MEDS: DEXT 5% NACL 0.45% KCL 40 MEQ 40 MEQ/1,000 ML BAG IV SCH ×3 (01:42→21:00)
[2020-10-22] MEDS: PANTOPRAZOLE 40 MG VIAL IV SCH (06:09)
[2020-10-22 06:40] LABS: Basophils % 0.3 % (0.0-0.8); Eosinophils # 0.1 10*3/uL (0.0-0.87); Eosinophils % 2.1 % (0.00-10.9); Hemoglobin 12.3 GM/DL (14.0-18.0); Immature Granulocytes % 0.3 %; Immature Granulocytes Absolute 0.02 #; Lymphocytes # 1.5 10*3/uL (1.4-4.0); Lymphocytes % 23.4 % (21.2-54.2); Mean Corpuscular HGB Conc 33.2 GM/DL (32-36); Mean Corpuscular Volume 96.4 FL (87-102); Mean Platelet Volume 9.9 FL (9.6-12.0); Monocytes % 17.3 % (1.7-12.7); Neutrophils % 56.6 % (38.7-73.9); Platelet Count 438 T/CUMM (130-400); Red Blood Count 3.84 MC/CUMM (3.8-5.5); Red Cell Distribution Width 16.6 % (9.3-17.3); White Blood Count 6.3 T/CUMM (4-12)
[2020-10-22 07:02] LABS: Calcium 8.1 MG/DL (8.5-10.1); Osmolality,Calculated 280.1 MOS/KG (273-304); Potassium 4.1 MMOL/L (3.5-5.1)
[2020-10-22 07:14] LABS: Atypical Lymphocytes Few; Eosinophils 1 % (0-10); Hypochromasia 1+; Lymphocytes 25 % (20-55); Microcytosis 1+; Segmented Neutrophils 60 % (50-85); Total Cells Counted 100
[2020-10-22 07:15] LABS: Anisocytosis 1+; Platelet Estimate Increased; Target Cells Slight
[2020-10-22] MEDS: FOLIC ACID 1 MG TABLET PO SCH (08:53)
[2020-10-22] MEDS: THIAMINE 100 MG TABLET PO SCH (08:53)
[2020-10-22] MEDS: ENOXAPARIN 40 MG/0.4 ML SYRINGE SUBCUT SCH (08:53)
[2020-10-22] MEDS: PHENOL 1.4% THROAT SPRAY 177 ML BOTTLE PO PRN (08:54)
[2020-10-22] MEDS: MORPHINE 2 MG/1 ML SYRINGE IV PRN ×2 (09:27→21:00)
[2020-10-22] MEDS ORDERED: HydrOXYzine PAMOATE 50 MG CAPSULE PO PRN (09:48)
[2020-10-22] MEDS ORDERED: SODIUM PHOSPHATE INJ 30 MMOL in SODIUM CHLORIDE 0.9% 250 ML IV ONE (11:00)
[2020-10-22] MEDS: DONEPEZIL 10 MG TABLET PO SCH (11:20)
[2020-10-22] MEDS: AMITRIPTYLINE 50 MG TABLET PO SCH (11:20)
[2020-10-22] MEDS: QUEtiapine 100 MG TABLET PO SCH (11:20)
[2020-10-22] MEDS: buPROPion XL 150 MG TABLET PO SCH (11:20)
[2020-10-22] MEDS ORDERED: chlordiazePOXIDE 25 MG CAPSULE PO ONE ×2 (13:00→21:00)
[2020-10-22] MEDS: POTASSIUM PHOS/SOD PHOS POWDER 250 MG PACK PO SCH ×2 (16:29)
[2020-10-22] MEDS ORDERED: MULTIVITAMIN INJ 10 ML, ZINC/COPPER/MANGANESE/SELENIUM 1 ML in AMINO ACIDS/DEXT/LYTES 4... IV SCH (17:00)
[2020-10-22] MEDS ORDERED: LORazepam 1 MG TABLET PO SCH (21:00)
[2020-10-23] MEDS: MORPHINE 2 MG/1 ML SYRINGE IV PRN ×2 (03:08→09:23)
[2020-10-23] MEDS: DEXT 5% NACL 0.45% KCL 40 MEQ 40 MEQ/1,000 ML BAG IV SCH (04:49)
[2020-10-23] MEDS: PANTOPRAZOLE 40 MG VIAL IV SCH (05:39)
[2020-10-23] MEDS ORDERED: LEVOTHYROXINE 88 MCG TABLET PO SCH (06:30)
[2020-10-23] MEDS: POTASSIUM PHOS/SOD PHOS POWDER 250 MG PACK PO SCH ×4 (08:47→11:03)
[2020-10-23] MEDS: QUEtiapine 100 MG TABLET PO SCH (08:48)
[2020-10-23] MEDS: THIAMINE 100 MG TABLET PO SCH (08:48)
[2020-10-23] MEDS: buPROPion XL 150 MG TABLET PO SCH (08:48)
[2020-10-23] MEDS: DONEPEZIL 10 MG TABLET PO SCH (08:48)
[2020-10-23] MEDS: ENOXAPARIN 40 MG/0.4 ML SYRINGE SUBCUT SCH (08:49)
[2020-10-23] MEDS ORDERED: MULTIVITAMIN (CENTRUM) TABLET PO SCH (09:00)
[2020-10-23] MEDS: AMITRIPTYLINE 50 MG TABLET PO SCH (09:31)
[2020-10-23] MEDS: FOLIC ACID 1 MG TABLET PO SCH (09:31)
[2020-10-23 11:24] VITALS: BP 120/64
[2020-10-25] MEDS ORDERED: FAT EMULSION 20% 250 ML IV SCH (14:00)
== END 2020-10-23 13:50 | disposition home or self-care (01) | DRG 439 ==
LOC: EDUNIT# → EDBD → N.EDINP 22:39 → N.ED 22:39 → N.EDINP 10-19 06:30 → N.5E 10-19 06:52
PROVIDERS: ADMIT Internal Medicine; ATTEND Internal Medicine